=== PATIENT | female | born 1960 | race Hispanic/Latino ===

== ENCOUNTER 2020-08-22 22:00 | Emergency (ER) | payer OTHER, MEDICARE ==
[~2020-08-22] VITALS: Ht 154.9 cm; Wt 92.1 kg
[2020-08-23] MEDS ORDERED: NAPROSYN500 MG PO (00:15)
[2020-08-23 00:28] VITALS: BP 144/85
[2020-08-25] MEDS ORDERED: ASPIRIN ENTERI325 MG PO (12:14)
[2020-08-25] MEDS ORDERED: JARDIANCE25 MG PO (12:14)
[2020-08-25] MEDS ORDERED: TURMERIC COMPL1 EACH PO (12:14)
[2020-08-25] MEDS ORDERED: ZYRTEC10 MG PO (12:14)
[2020-08-25] MEDS ORDERED: METOPROLOL TART50 MG PO (12:14)
[2020-08-25] MEDS ORDERED: HUMALOG SC (12:14)
[2020-08-25] MEDS ORDERED: BYDUREON P2 MG/0.65 SC (12:14)
[2020-08-25] MEDS ORDERED: HYDROCHLOROTHIA25 MG PO (12:14)
[2020-08-25] MEDS ORDERED: CALCIUM 600 +1 EAC2 PO (12:14)
[2020-08-25] MEDS ORDERED: LEVEMIR FL100 UNIT/1 SC (12:14)
[2020-08-25] MEDS ORDERED: MULTI-VITAMIN1 EACH PO (12:14)
[2020-08-25] MEDS ORDERED: LISINOPRIL10 MG PO (12:14)
== END 2020-08-23 00:28 | disposition home or self-care (01) ==
LOC: FSED 22:45
DX: S90.32XA Contusion of left foot, initial encounter (principal); M25.562 Pain in left knee; W01.0XXA Fall on same level from slipping, tripping and stumbling without subsequent striking against object, initial encounter; Y93.01 Activity, walking, marching and hiking; I10 Essential (primary) hypertension; E11.65 Type 2 diabetes mellitus with hyperglycemia; E78.00 Pure hypercholesterolemia, unspecified; Z86.73 Personal history of transient ischemic attack (TIA), and cerebral infarction without residual deficits
CPT/HCPCS: 99283

== ENCOUNTER → 2020-08-26 | Day surgery (SDC) | payer MEDICARE ==
[2020-08-22 13:20] LABS: BASOPHILS % 0.6 % (0.0-1.0); EOSINOPHILS # (AUTO) 0.4 (0.0-0.4); EOSINOPHILS % 5.1 % (0.0-6.0); HEMATOCRIT 36.4 % (34.2-44.1); HEMOGLOBIN 11.8 g/dL (12.0-16.0); LYMPHOCYTES # (AUTO) 2.6 (1.0-3.2); LYMPHOCYTES % 36.4 % (18.0-39.1); MEAN CORPUSCULAR HEMOGLOBIN 30.3 pg (28-32); MEAN CORPUSCULAR HGB CONC 32.4 g/dL (31-35); MEAN CORPUSCULAR VOLUME 93.3 fL (81-99); MONOCYTES # (AUTO) 0.3 (0.2-0.8); MONOCYTES % 4.7 % (4.4-11.3); NEUTROPHILS # (AUTO) 3.8 (2.1-6.9); NEUTROPHILS % 52.9 % (38.7-80.0); PLATELET COUNT 254 x10e3/uL (140-360); RED CELL DISTRIBUTION WIDTH 12.7 % (11.7-14.4)
[2020-08-22 13:50] LABS: ALBUMIN 3.5 g/dL (3.5-5.0); ANION GAP 15.1 mmol/L (8-16); CREATININE, SERUM 1.19 mg/dL (0.57-1.11); POTASSIUM 5.1 mmol/L (3.5-5.1)
[2020-08-26] VITALS (7 sets, daily range): BP systolic 114–159; BP diastolic 56–74
[~2020-08-26] VITALS: Ht 154.9 cm; Wt 90.7 kg
[~2020-08-26] MED LIST: ASPIRIN ENTERI325 MG PO; BYDUREON P2 MG/0.65 SC; CALCIUM 600 +1 EAC2 PO; HUMALOG SC; HYDROCHLOROTHIA25 MG PO; JARDIANCE25 MG PO; LEVEMIR FL100 UNIT/1 SC; LISINOPRIL10 MG PO; METOPROLOL TART50 MG PO; MULTI-VITAMIN1 EACH PO; NAPROSYN500 MG PO; TURMERIC COMPL1 EACH PO; ZYRTEC10 MG PO
== END | disposition home or self-care (01) ==
LOC: CATH LAB 12:56
PROVIDERS: ATTEND Internal Medicine Interventional Cardiology
DX: I25.118 Atherosclerotic heart disease of native coronary artery with other forms of angina pectoris (principal); R94.39 Abnormal result of other cardiovascular function study; R03.0 Elevated blood-pressure reading, without diagnosis of hypertension; E78.00 Pure hypercholesterolemia, unspecified; E11.9 Type 2 diabetes mellitus without complications; Z01.812 Encounter for preprocedural laboratory examination; Z20.822 Contact with and (suspected) exposure to COVID-19; Z79.4 Long term (current) use of insulin; Z79.82 Long term (current) use of aspirin; Z68.38 Body mass index [BMI] 38.0-38.9, adult; Z86.73 Personal history of transient ischemic attack (TIA), and cerebral infarction without residual deficits; Z82.49 Family history of ischemic heart disease and other diseases of the circulatory system; Z83.3 Family history of diabetes mellitus; Z82.3 Family history of stroke
CPT/HCPCS: 36415; 76937; 80053; 83880; 85025; 93454; C1887; U0002; 99152; 99153

== ENCOUNTER 2022-01-10 09:44 | Emergency (ER) | payer MEDICARE, OTHER ==
[~2022-01-10] VITALS: Ht 154.9 cm; Wt 96.2 kg
[2022-01-10] MEDS ORDERED: KETOROLAC TROMETHAMINE 30 MG/ML VIAL IM ONE (10:30)
== END 2022-01-10 11:57 | disposition home or self-care (01) ==
LOC: ER 09:48
DX: M65.4 Radial styloid tenosynovitis [de Quervain] (principal); I10 Essential (primary) hypertension; E11.9 Type 2 diabetes mellitus without complications; E78.5 Hyperlipidemia, unspecified; I25.10 Atherosclerotic heart disease of native coronary artery without angina pectoris; E78.00 Pure hypercholesterolemia, unspecified; I69.351 Hemiplegia and hemiparesis following cerebral infarction affecting right dominant side
CPT/HCPCS: 73110; 99283; J1885